=== PATIENT | male | born 2000 | race Hispanic/Latino ===

== ENCOUNTER 2018-04-25 22:34 | Emergency (ER) | payer BC ==
[2018-04-25 22:38] VITALS: BP 144/92; PULSE 70; RESP 16; TEMP 98.1; O2SAT 98
--- NOTE | 2018-04-26 00:55 | ED PDOC ---
HPI:Nausea, Vomiting, Diarrhea Time Seen by Provider: 04/25/18 22:44 Chief Complaint (Nursing): Abnormal Skin Integrity Chief Complaint (Provider): Abnormal Skin Integrity History Per: Patient History/Exam Limitations: no limitations Onset/Duration Of Symptoms: Hrs (x1) Current Symptoms Are (Timing): Gone Now Additional Complaint(s): Christofer Omer is a 17 year old male with a past medical history of allergic dermatitis who is presenting to the ED for evaluation of eruption of hives to back, onset 1 hour prior to arrival. Patient states that he is using hydrocortisone but not taking any medications PO. Hives resolved upon arrival to ED and patient denies any respiratory difficulty. PMD: PMD in [facility] Past Medical History Reviewed: Historical Data, Nursing Documentation, Vital Signs Vital Signs: Last Vital Signs Temp 98.1 F 04/25/18 22:36 Pulse 70 04/25/18 22:36 Resp 16 04/25/18 22:36 BP 144/92 H 04/25/18 22:36 Pulse Ox 98 04/25/18 22:36 - Medical History PMH: Asthma - Surgical History Surgical History: No Surg Hx - Family History Family History: States: Unknown Family Hx - Social History Current smoker - smoking cessation education provided: No Alcohol: Social Drugs: Denies - Home Medications Home Medications: Ambulatory Orders Medication Instructions Recorded Methylprednisolone [Medrol Dose 4 mg PO DAILY #21 mg 04/25/18 Pack (21 tabs)] - Allergies Allergies/Adverse Reactions: Allergies Allergy/AdvReac Type Severity Reaction Status Date / Time egg Allergy SHORTNESS Verified 04/25/18 22:36 OF BREATH FISH Allergy SHORTNESS Verified 04/25/18 22:36 OF BREATH Penicillins Allergy RASH Verified 04/25/18 22:36 sesame seed Allergy SHORTNESS Verified 04/25/18 22:44 OF BREATH tree nut Allergy SHORTNESS Verified 04/25/18 22:36 OF BREATH dairy Allergy RASH Uncoded 04/25/18 22:36 Review of Systems ROS Statement: Except As Marked, All Systems Reviewed And Found Negative Respiratory: Negative for: Shortness of Breath Skin: Positive for: Other (hives to back) Physical Exam - Reviewed Nursing Documentation Reviewed: Yes Vital Signs Reviewed: Yes - Physical Exam Appears: Positive for: Well, Non-toxic, No Acute Distress Head Exam: Positive for: ATRAUMATIC, NORMAL INSPECTION, NORMOCEPHALIC Skin: Positive for: Normal Color, Warm, DRY Eye Exam: Positive for: EOMI, Normal appearance, PERRL ENT: Positive for: Normal ENT Inspection Neck: Positive for: Normal, Painless ROM Cardiovascular/Chest: Positive for: Regular Rate, Rhythm. Negative for: Murmur Respiratory: Positive for: Normal Breath Sounds. Negative for: Respiratory Distress Gastrointestinal/Abdominal: Positive for: Normal Exam, Soft. Negative for: Tenderness Back: Positive for: Normal Inspection. Negative for: L CVA Tenderness, R CVA Tenderness Extremity: Positive for: Normal ROM. Negative for: Deformity, Swelling Neurologic/Psych: Positive for: Alert, Oriented. 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 Provider Scribe Attestation: All medical record entries made by the Scribe were at my direction and personally dictated by me. I have reviewed the chart and agree that the record accurately reflects my personal performance of the history, physical exam, medical decision making, and the department course for this patient. I have also personally directed, reviewed, and agree with the discharge instructions and disposition. Disposition - Clinical Impression Clinical Impression: Allergic reaction - Disposition Disposition: Routine/Home Disposition Time: 23:00 Condition: STABLE Prescriptions: Methylprednisolone [Medrol Dose Pack (21 tabs)] 4 mg PO DAILY #21 mg Instructions: Allergy Skin Testing Forms: [employer] (Lao)
== END 2018-04-25 23:30 | disposition home or self-care (01) ==
LOC: H.ER 22:34
DX: L23.9 Allergic contact dermatitis, unspecified cause (principal); L50.9 Urticaria, unspecified; J45.909 Unspecified asthma, uncomplicated; Z88.0 Allergy status to penicillin